=== PATIENT | female | born 1980 | race Caucasian/White ===

== ENCOUNTER → 2017-03-10 | Outpatient (CLI) | payer BC | LOC: HEART 5 14:55 | DX: R93.1 Abnormal findings on diagnostic imaging of heart and coronary circulation (principal) | CPT/HCPCS: 93306 ==

== ENCOUNTER → 2017-03-23 | Outpatient (CLI) | payer BC | LOC: EMI 16:50 | DX: M54.2 Cervicalgia (principal); M50.90 Cervical disc disorder, unspecified, unspecified cervical region; M50.222 Other cervical disc displacement at C5-C6 level | CPT/HCPCS: 72141 ==

== ENCOUNTER → 2021-06-12 | Outpatient (CLI) | payer OTHER | LOC: HEART CORB 14:02 | DX: I10 Essential (primary) hypertension (principal); R00.2 Palpitations; R60.0 Localized edema | CPT/HCPCS: 93306 ==